=== PATIENT | male | born 1975 ===

== ENCOUNTER 2017-01-27 15:10 | Emergency (ER) | payer OTHER ==
[~2017-01-27] VITALS: Ht 182.9 cm; Wt 63.5 kg
[2017-01-27 15:15] VITALS: BP 149/79
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
[2017-01-27] MEDS ORDERED: PAROXETINE HCL20 M1 (15:41)
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
== END 2017-01-27 16:40 ==
LOC: ERH 15:10
DX: S16.1XXA Strain of muscle, fascia and tendon at neck level, initial encounter (principal); S09.90XA Unspecified injury of head, initial encounter; V49.40XA Driver injured in collision with unspecified motor vehicles in traffic accident, initial encounter; Y93.9 Activity, unspecified; Y92.488 Other paved roadways as the place of occurrence of the external cause